=== PATIENT | female | born 1965 | race Caucasian/White ===

== ENCOUNTER 2016-06-30 21:40 | Observation (INO) | payer OTHER ==
[~2016-06-30] VITALS: Ht 165.1 cm; Wt 104.2 kg
[~2016-06-30 21:40] MED LIST: ALBUTEROL SULF8.5 GM IH; ASTELIN137 MCG/0. BOTH NARES; AVAPRO75 MG PO; DOXYCYCLINE HY100 MG PO; FLEXERIL10 MG PO; NAPROSYN500 MG PO; PANTOPRAZOLE SO20 MG PO; PHENERGAN25 MG PR; PREDNISONE10 MG PO; PROAIR HFA8.5 GM IH; SINGULAIR ORAL G4 MG PO; SPIRIVA1 INHALATI IH; SYMBICORT60 INHALAT IH; ULTRAM50 MG PO; VICODIN 5-3001 EACH PO; ZOFRAN4 MG PO
[2016-06-30 22:10] LABS: HEMATOCRIT 39.3 % (36.0-46.0); MCH 30.8 PG (29.0-34.0); MCHC 33.6 G/DL (30.0-36.0); MCV 91.8 FL (83-99); PLATELET COUNT 277 K/uL (156-360); RBC DIS.WIDTH-CV 13.5 % (11.8-14.6); RBC DIS.WIDTH-SD 44.5 % (39-53); RED BLOOD COUNT 4.28 M/uL (3.80-5.20)
[2016-06-30 22:25] LABS: CHLORIDE 108 mEq/L (99-109); POTASSIUM 3.9 mEq/L (3.7-5.4); SODIUM 143 mEq/L (136-147)
[2016-06-30 22:26] LABS: GLUCOSE 113 mg/dL (70-99)
[2016-06-30 22:28] LABS: ANION GAP 10 MEQ/L (2-14)
[2016-06-30 22:30] LABS: GFR ESTIMATE (CALCULATED) > 59 mL/min/
[2016-06-30 22:31] LABS: TROP-I INTERPRETATION NEGATIVE; TROPONIN-I < 0.01 ng/mL (0.0-0.30); UREA NITROGEN (BUN) 18 mg/dL (9-23)
[2016-06-30 23:57] LABS: D-DIMER ELISA 0.57 mg/L FEU (< 0.57)
[2016-06-30] MEDS ORDERED: LEVOTHYROXINE50 MCG PO (23:57)
[2016-06-30] MEDS ORDERED: LEVOTHYROXINE125 MCG PO (23:58)
[2016-07-01] MEDS ORDERED: GABAPENTIN300 MG PO (00:32)
[2016-07-01 00:59] LABS: TOTAL BILIRUBIN 0.3 mg/dL (0.0-1.0)
[2016-07-01 01:00] LABS: ALKALINE PHOSPHATASE 83 IU/L (3-129)
[2016-07-01 01:03] LABS: DIRECT BILIRUBIN 0.1 mg/dL (0.0-0.3)
[2016-07-01 04:51] LABS: TROP-I INTERPRETATION NEGATIVE; TROPONIN-I < 0.01 ng/mL (0.0-0.30)
[2016-07-01 05:06] LABS: HDL CHOLESTEROL 49 MG/DL (Desirable>=50); LDL CHOLESTEROL 81 mg/dL (Desirable<100); NON-HDL CHOLESTEROL 99 mg/dL (Desirable<160); TOTAL CHOLESTEROL 148 mg/dL (Desirable<200); TRIGLYCERIDES 88 MG/DL (Normal: <150)
[2016-07-01 10:37] LABS: TROP-I INTERPRETATION NEGATIVE; TROPONIN-I < 0.01 ng/mL (0.0-0.30)
[2016-07-01 15:34] VITALS: BP 137/84
[2016-07-01] MEDS ORDERED: LO-DOSE ASPIRIN81 M2 PO (16:05)
[2016-07-02 08:55] LABS: Estimated Average Glucose 123 mg/dL (70-123); HEMOGLOBIN A1c (GLYCOHEMOGLOB) 5.9 % HGB (Below 5.7)
== END 2016-07-01 16:29 | disposition home or self-care (01) ==
LOC: EME 21:40 → EDOF 07-01 00:37 → 5WEST 07-01 15:21
PROVIDERS: Hospitalist; Physician Assistant Medical
DX: R07.89 Other chest pain (principal); R94.31 Abnormal electrocardiogram [ECG] [EKG]; F17.200 Nicotine dependence, unspecified, uncomplicated; E66.01 Morbid (severe) obesity due to excess calories; Z68.37 Body mass index [BMI] 37.0-37.9, adult; K21.9 Gastro-esophageal reflux disease without esophagitis; K80.20 Calculus of gallbladder without cholecystitis without obstruction; E03.9 Hypothyroidism, unspecified; Z82.49 Family history of ischemic heart disease and other diseases of the circulatory system; Z82.3 Family history of stroke
CPT/HCPCS: 71020; 80048; 80061; 80076; 83036; 84484; 85027; 85379; 93005; 99281; 99285; G0378; J1650